=== PATIENT | male | born 1970 | race Caucasian/White ===

== ENCOUNTER → 2021-02-22 | Day surgery (SDC) | payer OTHER ==
[~2021-02-22] MED LIST: CIPROFLOXACN500 MG PO; LIPITOR20 M1 PO; LISINOPRIL20 MG PO; LISINOPRIL30 MG OR; PRAVASTATIN20 MG PO; ZOFRAN ODT4 MG PO
[2021-02-22 10:53] VITALS: BP 115/69
== END | disposition home or self-care (01) | DRG 951 ==
LOC: ENDO 07:30
PROVIDERS: ATTEND Surgery
PROC: 0DJD8ZZ Inspection of Lower Intestinal Tract, Via Natural or Artificial Opening Endoscopic (ICD-10-PCS; principal; 2021-02-22)
DX: Z12.11 Encounter for screening for malignant neoplasm of colon (principal)